=== PATIENT | female | born 1955 | race Caucasian/White ===

== ENCOUNTER 2024-04-21 12:08 | Inpatient (IN) | payer MEDICARE, MEDICAID ==
[~2024-04-21] VITALS: Ht 175.3 cm; Wt 49.6 kg
[~2024-04-21 12:08] MED LIST: ATOR20TA65 PO; BREX1TAB PO
[2024-04-21 12:39] LABS: PH,URINE DRUG SCREEN 5.5 (5.0-8.0)
[2024-04-21 12:40] LABS: COVID AG,FIA SOURCE NASAL SWAB
[2024-04-21 12:44] LABS: ALCOHOL, URINE DRUG SCREEN NEGATIVE (NEGATIVE); AMPHET/METH SCREEN,URINE NEGATIVE (NEGATIVE); BARBITURATE SCREEN, URINE NEGATIVE (NEGATIVE); BENZODIAZEPINES SCREEN,URINE NEGATIVE (NEGATIVE); CANNABINOID SCREEN,URINE NEGATIVE (NEGATIVE); COCAINE SCREEN,URINE NEGATIVE (NEGATIVE); METHADONE SCREEN, URINE NEGATIVE (NEGATIVE); OPIATE SCREEN,URINE NEGATIVE (NEGATIVE); PHENCYCLIDINE SCREEN,URINE NEGATIVE (NEGATIVE)
[2024-04-21 12:44] LABS: BASOPHILS % (AUTO) 1.2 % (0.0-2.0); EOSINOPHILS % (AUTO) 2.2 % (1.0-6.0); HEMATOCRIT 36.2 % (36-46); HEMOGLOBIN 12.2 g/dL (12.0-16.0); LYMPHOCYTES # (AUTO) 1.2 K/uL (1.0-4.8); LYMPHOCYTES % (AUTO) 18.4 % (22.0-44.0); MEAN CORPUSCULAR HEMOGLOBIN 30.6 pg (26.0-34.0); MEAN CORPUSCULAR HGB CONC 33.6 G/dL (31.0-37.0); MEAN CORPUSCULAR VOLUME 91 fL (80-100); MONOCYTES # (AUTO) 0.5 K/uL (0.1-1.0); MONOCYTES % (AUTO) 7.3 % (2.0-9.0); NEUTROPHILS # (AUTO) 4.6 K/uL (1.8-7.7); NEUTROPHILS % (AUTO) 70.9 % (40.0-70.0); PLATELET COUNT (AUTO) 262 K/uL (150-450); RED BLOOD CELL COUNT(AUTO) 3.97 MIL/uL (4.00-5.20); RED CELL DISTRIBUTION WIDTH 13.9 % (11.5-14.5); WHITE BLOOD COUNT (AUTO) 6.5 K/uL (4.5-11.0)
[2024-04-21 12:52] LABS: ANION GAP 10 mmol/L (8-16); CALCIUM, TOTAL 8.7 mg/dL (8.8-10.5); CARBON DIOXIDE 25 mmol/L (22-29); CHLORIDE 101 mmol/L (98-107); CREATININE 0.72 mg/dL (0.60-1.30); GLOMERULAR FILTR. RATE CALC > 60 mL/min (>60); GLUCOSE,RANDOM 89 mg/dL (70-110); POTASSIUM 3.9 mmol/L (3.5-5.1); SODIUM SERUM 136 mmol/L (136-145); UREA NITROGEN, BLOOD 7 mg/dL (7-18)
[2024-04-21 12:56] LABS: ALCOHOL, BLOOD (SERUM) < 3 mg/dL (0-10)
[2024-04-21 13:01] LABS: SARS-COV2 (COVID) ANTIGEN,FIA Negative (Negative)
[2024-04-21] MEDS ORDERED: QUEtiapine FUMARATE 100 MG TABLET PO PRN (13:30)
[2024-04-21] MEDS ORDERED: LORazepam 2 MG TABLET PO PRN (13:30)
[2024-04-21] MEDS ORDERED: ZOLPIDEM TARTRATE 5 MG TABLET PO PRN (13:30)
[2024-04-21 13:31] LABS: APPEARANCE,URINE CLEAR (CLEAR); BILIRUBIN,URINE NEGATIVE (NEGATIVE); COLOR,URINE LIGHT YELLOW (YELLOW); GLUCOSE, URINE (UA) NEGATIVE (NEGATIVE); KETONES,URINE NEGATIVE (NEGATIVE); LEUKOCYTE ESTERASE ,URINE NEGATIVE (NEGATIVE); NITRATE,URINE NEGATIVE (NEGATIVE); OCCULT BLOOD,URINE NEGATIVE (NEGATIVE); PH,URINE 5.5 (5.0-8.0); PROTEIN,URINE NEGATIVE (NEGATIVE); SPECIFIC GRAVITIY, URINE 1.008 (1.003-1.030); UROBILINOGEN,URINE <=1.0 mg/dL (<=1.0)
[2024-04-21] MEDS ORDERED: ALBUTEROL SULFATE HFA 90 MCG/PUFF 8 GM INHALER IH PRN (17:15)
[2024-04-21 17:31] VITALS: BP 131/81; PULSE 100; RESP 18; TEMP 97.3; O2SAT 99
[2024-04-21] MEDS ORDERED: ALBU18HF12 IH (17:31)
[2024-04-21] MEDS ORDERED: PNEUMOCOCCAL VACCINE POLYVALENT 0.5 ML SYRINGE [PPSV23] IM. ONE (17:45)
[2024-04-21 20:00] VITALS: BP 127/80; PULSE 95; RESP 18; TEMP 98
[2024-04-22] MEDS ORDERED: DOCUSATE SODIUM 100 MG CAPSULE PO PRN (08:00)
[2024-04-22] MEDS ORDERED: ACETAMINOPHEN 325 MG TABLET PO PRN (08:00)
[2024-04-22] MEDS ORDERED: NICOTINE 14 MG/24 HOUR PATCH TD PRN (08:00)
[2024-04-22] MEDS ORDERED: LOPERAMIDE HCL 2 MG CAPSULE PO PRN (08:00)
[2024-04-22] MEDS ORDERED: MAGNESIUM HYDROXIDE SUSPENSION 30 ML UDCUP PO PRN (08:00)
[2024-04-22] MEDS ORDERED: IBUPROFEN 400 MG TABLET PO PRN (08:00)
[2024-04-22] MEDS ORDERED: ALBUTEROL SULFATE HFA 90 MCG/PUFF 8 GM INHALER IH PRN (08:00)
[2024-04-22] MEDS ORDERED: CloNIDine HCL 0.1 MG TABLET PO PRN (08:00)
[2024-04-22] MEDS ORDERED: ONDANSETRON HCL 4 MG TABLET PO PRN (08:00)
[2024-04-22] MEDS ORDERED: GuaiFENesin/D-METHORPHAN [SUGAR-FREE] 200-20MG/10 ML SYRUP UDCUP PO PRN (08:00)
[2024-04-22] MEDS ORDERED: MAG HYDROX/ALUMINUM HYD/SIMETH ES 30 ML SUSPENSION UDCUP PO PRN (08:00)
[2024-04-22] MEDS ORDERED: PETROLATUM,WHITE 28 GM JELLY TP PRN (08:00)
[2024-04-22 08:25] VITALS: BP 125/68; PULSE 100; RESP 18; TEMP 97.6; O2SAT 100
[2024-04-22] MEDS ORDERED: ESCI5TAB16 PO (11:08)
[2024-04-22] MEDS ORDERED: BREX1TAB PO (11:08)
[2024-04-22] MEDS: ESCITALOPRAM OXALATE 10 MG TABLET PO SCH (11:15)
[2024-04-22] MEDS: BREXPIPRAZOLE 1 MG TABLET PO SCH (11:15)
[2024-04-22 20:00] VITALS: BP 106/61; PULSE 83; RESP 18; TEMP 97.4; O2SAT 100
[2024-04-23 08:04] LABS: HEMOGLOBIN A1C 5.4 % (3.8-5.6)
[2024-04-23 08:13] LABS: CHOL/HDL RATIO 2.2 (3.9-5.7); THYROID STIMULATING HORMONE 2.79 uIU/mL (0.36-3.74)
[2024-04-23 08:26] VITALS: BP 125/80; PULSE 89; RESP 18; TEMP 97.8; O2SAT 100
[2024-04-23 20:21] VITALS: BP 91/59; PULSE 91; TEMP 97.3; O2SAT 99
[2024-04-24 08:32] VITALS: BP 118/66; PULSE 79; RESP 16; TEMP 97.6; O2SAT 98
[2024-04-24 21:24] VITALS: BP 100/68; PULSE 88; RESP 18; TEMP 97.3; O2SAT 96
[2024-04-25 08:18] VITALS: BP 118/79; PULSE 86; RESP 16; TEMP 97.9; O2SAT 99
[2024-04-25 22:28] VITALS: BP 99/63; PULSE 87; RESP 16; TEMP 97.2; O2SAT 94
[2024-04-26 08:21] VITALS: BP 106/59; PULSE 99; RESP 18; TEMP 97.9; O2SAT 99
[2024-04-26 08:58] LABS: APPEARANCE,URINE CLEAR (CLEAR); BILIRUBIN,URINE NEGATIVE (NEGATIVE); COLOR,URINE COLORLESS (YELLOW); GLUCOSE, URINE (UA) NEGATIVE (NEGATIVE); KETONES,URINE NEGATIVE (NEGATIVE); LEUKOCYTE ESTERASE ,URINE NEGATIVE (NEGATIVE); NITRATE,URINE NEGATIVE (NEGATIVE); OCCULT BLOOD,URINE NEGATIVE (NEGATIVE); PROTEIN,URINE NEGATIVE (NEGATIVE); SPECIFIC GRAVITIY, URINE 1.007 (1.003-1.030); UROBILINOGEN,URINE <=1.0 mg/dL (<=1.0)
[2024-04-26 09:10] LABS: AMPHET/METH SCREEN,URINE NEGATIVE (NEGATIVE); BARBITURATE SCREEN, URINE NEGATIVE (NEGATIVE); BENZODIAZEPINES SCREEN,URINE NEGATIVE (NEGATIVE); CANNABINOID SCREEN,URINE NEGATIVE (NEGATIVE); COCAINE SCREEN,URINE NEGATIVE (NEGATIVE); METHADONE SCREEN, URINE NEGATIVE (NEGATIVE); OPIATE SCREEN,URINE NEGATIVE (NEGATIVE); PHENCYCLIDINE SCREEN,URINE NEGATIVE (NEGATIVE)
[2024-04-26 09:20] LABS: ALCOHOL, URINE DRUG SCREEN NEGATIVE (NEGATIVE)
[2024-04-26 21:22] VITALS: BP 131/80; PULSE 89; RESP 18; TEMP 97.4; O2SAT 100
[2024-04-27 09:42] VITALS: BP 110/83; PULSE 89; RESP 18; TEMP 97; O2SAT 89
[2024-04-27 20:47] VITALS: BP 96/57; PULSE 63; TEMP 97.5; O2SAT 100
[2024-04-28 08:31] VITALS: BP 98/60; PULSE 76; RESP 14; TEMP 97.2; O2SAT 95
[2024-04-29 00:38] VITALS: RESP 18
[2024-04-29 08:00] VITALS: BP 92/70; PULSE 93; RESP 17; TEMP 96.9; O2SAT 99
[2024-04-29 13:08] VITALS: BP 112/68; PULSE 72; RESP 18; TEMP 97.8; O2SAT 97
[2024-04-29 21:28] VITALS: BP 93/55; PULSE 70; RESP 16; TEMP 96.9; O2SAT 98
[2024-04-29 21:43] VITALS: BP 120/78; PULSE 106; O2SAT 97
[2024-04-30 08:30] VITALS: BP 124/62; PULSE 87; RESP 17; TEMP 97.5; O2SAT 100
[2024-04-30 20:38] VITALS: BP 105/70; PULSE 73; TEMP 97.2; O2SAT 94
[2024-05-01 08:44] VITALS: BP 109/65; PULSE 92; RESP 18; TEMP 97.1; O2SAT 99
[2024-05-01 21:20] VITALS: BP 103/67; PULSE 94; TEMP 97.5; O2SAT 97
[2024-05-02 08:13] VITALS: BP 104/58; PULSE 100; RESP 16; TEMP 98.2; O2SAT 100
[2024-05-02 20:11] VITALS: BP 109/71; PULSE 94; TEMP 97.3; O2SAT 99
[2024-05-03 08:42] VITALS: BP 116/63; PULSE 96; RESP 18; TEMP 97.5; O2SAT 100
[2024-05-03 20:30] VITALS: BP 115/75; PULSE 82; RESP 16; TEMP 97.7; O2SAT 99
[2024-05-04 08:28] VITALS: BP 91/71; PULSE 89; RESP 16; TEMP 97.9; O2SAT 99
[2024-05-04 21:14] VITALS: BP 112/75; PULSE 94; RESP 17; TEMP 97.5; O2SAT 99
[2024-05-05 09:45] VITALS: BP 104/69; PULSE 94; RESP 18; TEMP 97.8; O2SAT 98
[2024-05-05 20:01] VITALS: BP 112/77; PULSE 88; RESP 17; TEMP 97.7
[2024-05-06 08:46] VITALS: BP 99/61; PULSE 89; RESP 18; TEMP 97; O2SAT 99
[2024-05-06 20:18] VITALS: BP 107/64; PULSE 87; RESP 16; TEMP 97.3; O2SAT 98
[2024-05-07 10:25] VITALS: BP 119/75; PULSE 89; RESP 18; TEMP 96.9; O2SAT 95
[2024-05-07 22:13] VITALS: RESP 18
[2024-05-08 08:14] VITALS: BP 115/62; PULSE 91; RESP 18; TEMP 97.6; O2SAT 99
[2024-05-08 20:00] VITALS: BP 95/67; PULSE 87; RESP 18; TEMP 97.2; O2SAT 98
[2024-05-09 09:09] VITALS: BP 103/68; PULSE 94; RESP 17; TEMP 96.3; O2SAT 99
[2024-05-09 21:10] VITALS: BP 132/65; PULSE 82; RESP 16; TEMP 97.1; O2SAT 97
[2024-05-10 08:36] VITALS: BP 109/69; PULSE 83; RESP 18; TEMP 97.9; O2SAT 98
[2024-05-10 20:08] VITALS: BP 111/70; PULSE 94; RESP 20; TEMP 97.2; O2SAT 98
[2024-05-11 08:41] VITALS: BP 102/64; PULSE 91; RESP 16; TEMP 97.3; O2SAT 99
[2024-05-11 09:20] VITALS: BP 102/64; PULSE 91; RESP 16; TEMP 97.3; O2SAT 99
[2024-05-11 21:16] VITALS: BP 117/72; PULSE 85; RESP 17; TEMP 97.8; O2SAT 98
[2024-05-12 08:17] VITALS: BP 100/62; PULSE 82; RESP 16; TEMP 97.6; O2SAT 95
[2024-05-12 20:58] VITALS: BP 103/62; PULSE 91; RESP 17; TEMP 97.5; O2SAT 98
[2024-05-13 08:15] VITALS: BP 119/72; PULSE 92; RESP 18; TEMP 97.4; O2SAT 99
[2024-05-13 20:56] VITALS: BP 113/70; PULSE 88; RESP 18; TEMP 96.8; O2SAT 99
[2024-05-14 09:00] VITALS: BP 118/69; PULSE 94; RESP 16; TEMP 97.7; O2SAT 100
[2024-05-14 21:47] VITALS: BP 116/80; PULSE 91; RESP 16; TEMP 96.9; O2SAT 99
[2024-05-15 08:10] VITALS: BP 99/60; PULSE 80; RESP 16; TEMP 97.8; O2SAT 96
[2024-05-15 20:23] VITALS: BP 101/62; PULSE 85; TEMP 97.3; O2SAT 98
[2024-05-16 08:03] VITALS: BP 102/60; PULSE 85; RESP 16; TEMP 97.6; O2SAT 99
== END 2024-05-16 17:21 | DRG 885 ==
LOC: EMS 12:08 → B3A 15:11
PROVIDERS: ADMIT Psychiatry & Neurology Psychiatry; ATTEND Psychiatry & Neurology Psychiatry
PROC: GZHZZZZ Group Psychotherapy (ICD-10-PCS; principal; 2024-04-22)
PROC: GZ51ZZZ Individual Psychotherapy, Behavioral (ICD-10-PCS; 2024-04-22)
DX: F25.1 Schizoaffective disorder, depressive type (principal); J45.909 Unspecified asthma, uncomplicated; E78.5 Hyperlipidemia, unspecified; Z20.822 Contact with and (suspected) exposure to COVID-19; G47.00 Insomnia, unspecified; Z91.148 Patient's other noncompliance with medication regimen for other reason; Z79.899 Other long term (current) drug therapy
CPT/HCPCS: 80048; 80061; 80307; 81003; 83036; 84443; 85025; G0480; Q9967

== ENCOUNTER 2024-12-22 12:33 | Inpatient (IN) | payer MEDICARE, MEDICAID ==
[~2024-12-22] VITALS: Ht 175.3 cm; Wt 47.6 kg
[2024-12-22] MEDS ORDERED: RISP-31 PO (12:42)
[2024-12-22] MEDS ORDERED: MULT-660 PO (12:42)
[2024-12-22] MEDS ORDERED: ESCI-8 PO (12:42)
[2024-12-22 13:11] LABS: BASOPHILS % (AUTO) 0.6 % (0.0-2.0); EOSINOPHILS % (AUTO) 3.9 % (1.0-6.0); HEMATOCRIT 38.9 % (36-46); LYMPHOCYTES # (AUTO) 0.9 K/uL (1.0-4.8); LYMPHOCYTES % (AUTO) 14.6 % (22.0-44.0); MEAN CORPUSCULAR HEMOGLOBIN 30.2 pg (26.0-34.0); MEAN CORPUSCULAR HGB CONC 33.5 G/dL (31.0-37.0); MEAN CORPUSCULAR VOLUME 90 fL (80-100); MONOCYTES # (AUTO) 0.9 K/uL (0.1-1.0); MONOCYTES % (AUTO) 14.2 % (2.0-9.0); NEUTROPHILS # (AUTO) 4.2 K/uL (1.8-7.7); NEUTROPHILS % (AUTO) 66.7 % (40.0-70.0); PLATELET COUNT (AUTO) 245 K/uL (150-450); RED BLOOD CELL COUNT(AUTO) 4.32 MIL/uL (4.00-5.20); RED CELL DISTRIBUTION WIDTH 13.8 % (11.5-14.5); WHITE BLOOD COUNT (AUTO) 6.2 K/uL (4.5-11.0)
[2024-12-22 13:25] LABS: ANION GAP 10 mmol/L (8-16); CALCIUM, TOTAL 8.6 mg/dL (8.8-10.5); CARBON DIOXIDE 28 mmol/L (22-29); CHLORIDE 103 mmol/L (98-107); CREATININE 0.79 mg/dL (0.60-1.30); GLOMERULAR FILTR. RATE CALC > 60 mL/min (>60); GLUCOSE,RANDOM 90 mg/dL (70-110); POTASSIUM 4.6 mmol/L (3.5-5.1); SODIUM SERUM 141 mmol/L (136-145); UREA NITROGEN, BLOOD 13 mg/dL (7-18)
[2024-12-22 13:39] LABS: ALCOHOL, BLOOD (SERUM) < 3 mg/dL (0-10)
[2024-12-22 13:41] LABS: COVID AG,FIA SOURCE NASAL SWAB
[2024-12-22 13:44] LABS: APPEARANCE,URINE CLEAR (CLEAR); BILIRUBIN,URINE NEGATIVE (NEGATIVE); COLOR,URINE YELLOW (YELLOW); GLUCOSE, URINE (UA) NEGATIVE (NEGATIVE); KETONES,URINE NEGATIVE (NEGATIVE); LEUKOCYTE ESTERASE ,URINE TRACE (NEGATIVE); NITRATE,URINE POSITIVE (NEGATIVE); OCCULT BLOOD,URINE NEGATIVE (NEGATIVE); PH,URINE 6.5 (5.0-8.0); PH,URINE DRUG SCREEN 6.5 (5.0-8.0); PROTEIN,URINE NEGATIVE (NEGATIVE); SPECIFIC GRAVITIY, URINE 1.018 (1.003-1.030); UROBILINOGEN,URINE <=1.0 mg/dL (<=1.0)
[2024-12-22 13:52] LABS: ALCOHOL, URINE DRUG SCREEN NEGATIVE (NEGATIVE); AMPHET/METH SCREEN,URINE NEGATIVE (NEGATIVE); BARBITURATE SCREEN, URINE NEGATIVE (NEGATIVE); BENZODIAZEPINES SCREEN,URINE NEGATIVE (NEGATIVE); CANNABINOID SCREEN,URINE NEGATIVE (NEGATIVE); COCAINE SCREEN,URINE NEGATIVE (NEGATIVE); METHADONE SCREEN, URINE NEGATIVE (NEGATIVE); OPIATE SCREEN,URINE NEGATIVE (NEGATIVE); PHENCYCLIDINE SCREEN,URINE NEGATIVE (NEGATIVE)
[2024-12-22 14:02] LABS: BACTERIA,URINE Moderate /HPF (None Seen); RBC,URINE None Seen /HPF (0-2); SQUAMOUS EPITHELIAL CELL,UR Few /LPF (None Seen)
[2024-12-22 14:06] LABS: SARS-COV2 (COVID) ANTIGEN,FIA Negative (Negative)
[2024-12-22] MEDS ORDERED: ALBU18HF12 PO (17:15)
[2024-12-22 17:44] VITALS: O2SAT 98
[2024-12-22] MEDS ORDERED: MAG HYDROX/ALUMINUM HYD/SIMETH ES 30 ML SUSPENSION UDCUP PO PRN ×2 (18:45→19:00)
[2024-12-22] MEDS ORDERED: ZOLPIDEM TARTRATE 10 MG TABLET PO PRN ×2 (18:45→19:00)
[2024-12-22] MEDS ORDERED: HALOPERIDOL 5 MG TABLET PO PRN ×2 (18:45→19:00)
[2024-12-22] MEDS ORDERED: LORazepam 2 MG TABLET PO PRN (18:45)
[2024-12-22] MEDS ORDERED: LOPERAMIDE HCL 2 MG CAPSULE PO PRN ×2 (18:45→19:00)
[2024-12-22] MEDS ORDERED: ACETAMINOPHEN 325 MG TABLET PO PRN ×2 (18:45→19:00)
[2024-12-22] MEDS ORDERED: MAGNESIUM HYDROXIDE SUSPENSION 30 ML UDCUP PO PRN ×2 (18:45→19:00)
[2024-12-22] MEDS: ALBUTEROL SULFATE HFA 90 MCG/PUFF 8 GM INHALER IH PRN (21:03)
[2024-12-22 21:08] VITALS: BP 138/85; PULSE 94; RESP 18; TEMP 97.3; O2SAT 97
[2024-12-23 08:55] VITALS: BP 107/69; PULSE 99; RESP 18; TEMP 97.3; O2SAT 95
[2024-12-23] MEDS: RisperiDONE 2 MG TABLET PO SCH (10:15)
[2024-12-23] MEDS: ESCITALOPRAM OXALATE 10 MG TABLET PO SCH (10:15)
[2024-12-23] MEDS ORDERED: LOPERAMIDE HCL 2 MG CAPSULE PO PRN (19:15)
[2024-12-23] MEDS ORDERED: PETROLATUM,WHITE 28 GM JELLY TP PRN (19:15)
[2024-12-23] MEDS ORDERED: MAG HYDROX/ALUMINUM HYD/SIMETH ES 30 ML SUSPENSION UDCUP PO PRN (19:15)
[2024-12-23] MEDS ORDERED: NICOTINE 14 MG/24 HOUR PATCH TD PRN (19:15)
[2024-12-23] MEDS ORDERED: ONDANSETRON 4 MG TABLET PO PRN (19:15)
[2024-12-23] MEDS ORDERED: IBUPROFEN 400 MG TABLET PO PRN (19:15)
[2024-12-23] MEDS ORDERED: ACETAMINOPHEN 325 MG TABLET PO PRN (19:15)
[2024-12-23] MEDS ORDERED: CloNIDine HCL 0.1 MG TABLET PO PRN (19:15)
[2024-12-23] MEDS ORDERED: MAGNESIUM HYDROXIDE SUSPENSION 30 ML UDCUP PO PRN (19:15)
[2024-12-23] MEDS ORDERED: DOCUSATE SODIUM 100 MG CAPSULE PO PRN (19:15)
[2024-12-23] MEDS ORDERED: GuaiFENesin/D-METHORPHAN [SUGAR-FREE] 200-20MG/10 ML SYRUP UDCUP PO PRN (19:15)
[2024-12-23 20:00] VITALS: RESP 17
[2024-12-24 08:07] VITALS: BP 118/67; PULSE 90; RESP 16; TEMP 98; O2SAT 96
[2024-12-24] MEDS: ALBUTEROL SULFATE HFA 90 MCG/PUFF 8 GM INHALER IH PRN (11:17)
[2024-12-24] MEDS: MEGESTROL ACETATE 40 MG TABLET PO ONE (16:08)
[2024-12-24] MEDS: FERROUS SULFATE 325 MG EC TABLET PO SCH (16:08)
[2024-12-24 20:40] VITALS: RESP 18
[2024-12-25 08:23] VITALS: BP 123/69; PULSE 126; RESP 17; TEMP 95; O2SAT 96
[2024-12-25] MEDS: MEGESTROL ACETATE 40 MG TABLET PO SCH (08:27)
[2024-12-25] MEDS: CEPHALEXIN MONOHYDRATE 500 MG CAPSULE PO SCH (08:33)
[2024-12-25 22:22] VITALS: RESP 18
[2024-12-26] MEDS: LORazepam 2 MG TABLET PO PRN (08:12)
[2024-12-26 08:41] VITALS: BP 130/75; PULSE 108; RESP 18; TEMP 97; O2SAT 98
[2024-12-26 09:08] LABS: HEMOGLOBIN A1C 5.4 % (3.8-5.6)
[2024-12-26 09:11] LABS: CHOL/HDL RATIO 2.1 (3.9-5.7); THYROID STIMULATING HORMONE 1.56 uIU/mL (0.36-3.74)
[2024-12-26 20:14] VITALS: BP 100/61; PULSE 112; RESP 17; TEMP 97.5; O2SAT 96
[2024-12-27 08:41] VITALS: BP 112/63; PULSE 87; RESP 19; TEMP 97.9; O2SAT 96
[2024-12-27 20:20] VITALS: BP 106/62; PULSE 102; RESP 19; TEMP 97.4; O2SAT 95
[2024-12-28 08:48] VITALS: BP 121/74; PULSE 65; RESP 18; TEMP 98.1; O2SAT 95
[2024-12-28 20:20] VITALS: BP 110/66; PULSE 115; RESP 19; TEMP 97.8; O2SAT 95
[2024-12-29 08:33] VITALS: BP 114/61; PULSE 105; RESP 16; TEMP 97.7; O2SAT 95
[2024-12-29 09:08] LABS: APPEARANCE,URINE HAZY (CLEAR); BILIRUBIN,URINE NEGATIVE (NEGATIVE); COLOR,URINE LIGHT YELLOW (YELLOW); GLUCOSE, URINE (UA) NEGATIVE (NEGATIVE); KETONES,URINE NEGATIVE (NEGATIVE); LEUKOCYTE ESTERASE ,URINE SMALL (NEGATIVE); NITRATE,URINE POSITIVE (NEGATIVE); OCCULT BLOOD,URINE NEGATIVE (NEGATIVE); PROTEIN,URINE NEGATIVE (NEGATIVE); SPECIFIC GRAVITIY, URINE 1.017 (1.003-1.030); UROBILINOGEN,URINE <=1.0 mg/dL (<=1.0)
[2024-12-29 09:21] LABS: ALCOHOL, URINE DRUG SCREEN NEGATIVE (NEGATIVE); BARBITURATE SCREEN, URINE NEGATIVE (NEGATIVE); BENZODIAZEPINES SCREEN,URINE NEGATIVE (NEGATIVE); CANNABINOID SCREEN,URINE NEGATIVE (NEGATIVE); COCAINE SCREEN,URINE NEGATIVE (NEGATIVE); METHADONE SCREEN, URINE NEGATIVE (NEGATIVE); OPIATE SCREEN,URINE NEGATIVE (NEGATIVE); PHENCYCLIDINE SCREEN,URINE NEGATIVE (NEGATIVE)
[2024-12-29 09:42] LABS: AMPHET/METH SCREEN,URINE NEGATIVE (NEGATIVE)
[2024-12-29 10:04] LABS: RBC,URINE None Seen /HPF (0-2)
[2024-12-29 10:05] LABS: BACTERIA,URINE Few /HPF (None Seen); SQUAMOUS EPITHELIAL CELL,UR Few /LPF (None Seen)
[2024-12-29 20:33] VITALS: RESP 16
[2024-12-30 08:26] VITALS: BP 102/60; PULSE 104; RESP 16; TEMP 97.6; O2SAT 97
[2024-12-30 20:57] VITALS: RESP 18
[2024-12-31 08:31] VITALS: BP 174/68; PULSE 80; RESP 17; TEMP 91.3; O2SAT 98
[2024-12-31 22:24] VITALS: BP 102/60; PULSE 89; RESP 18; TEMP 96; O2SAT 97
[2025-01-01 20:29] VITALS: BP 119/60; PULSE 92; RESP 18; TEMP 97.9; O2SAT 98
[2025-01-02 08:00] VITALS: BP 96/62; PULSE 97; RESP 18; O2SAT 98
[2025-01-02 20:29] VITALS: BP 102/66; PULSE 91; RESP 18; TEMP 98.2; O2SAT 97
[2025-01-03 08:31] VITALS: BP 115/60; PULSE 105; RESP 18; TEMP 97.8; O2SAT 98
[2025-01-03] MEDS ORDERED: FERR325T27 PO (10:33)
[2025-01-03] MEDS ORDERED: MEGE40 PO (10:33)
[2025-01-03] MEDS ORDERED: RISP-32 PO (10:33)
== END 2025-01-03 17:00 | DRG 885 ==
LOC: EMS 12:36 → B2X 18:38 → EMS 18:38 → B2X 18:41
PROVIDERS: ADMIT Psychiatry & Neurology Psychiatry; ATTEND Psychiatry & Neurology Psychiatry
PROC: GZHZZZZ Group Psychotherapy (ICD-10-PCS; principal; 2024-12-23)
PROC: GZ52ZZZ Individual Psychotherapy, Cognitive (ICD-10-PCS; 2024-12-23)
DX: F25.1 Schizoaffective disorder, depressive type (principal); E43 Unspecified severe protein-calorie malnutrition; F03.93 Unspecified dementia, unspecified severity, with mood disturbance; F03.918 Unspecified dementia, unspecified severity, with other behavioral disturbance; Z68.1 Body mass index [BMI] 19.9 or less, adult; I10 Essential (primary) hypertension; J45.909 Unspecified asthma, uncomplicated; E78.5 Hyperlipidemia, unspecified; E78.00 Pure hypercholesterolemia, unspecified; Z91.148 Patient's other noncompliance with medication regimen for other reason; Z79.899 Other long term (current) drug therapy; Z20.822 Contact with and (suspected) exposure to COVID-19
CPT/HCPCS: 80048; 80061; 80307; 81001; 83036; 84443; 85025; 87077; 87081; 87086; 99285; G0480; J3535